=== PATIENT | male | born 1955 ===

== ENCOUNTER 2025-08-16 12:32 | Day surgery (SDC) | payer MEDICARE ==
[~2025-08-16] VITALS: Ht 193 cm; Wt 76.1 kg
[2025-08-16] MEDS ORDERED: CeFAZolin Sodium 2,000 MG VIAL ONE (12:53)
[2025-08-16] MEDS ORDERED: REMERON30 M9 (13:00)
[2025-08-16] MEDS ORDERED: LOSARTAN POTASS25 M2 (13:00)
[2025-08-16] MEDS ORDERED: DUTASTERIDE0.5 M3 (13:00)
[2025-08-16] MEDS ORDERED: TAMSULOSIN HCL0.4 M1 (13:00)
[2025-08-16] MEDS ORDERED: Cialis5 MG (13:01)
[2025-08-16] MEDS ORDERED: FentaNYL Citrate 50 MCG/ML 2 ML Injection ONE (14:08)
[2025-08-16] MEDS ORDERED: Dexamethasone Sod Phos 10 MG/ML 1ML VIAL ONE (14:21)
[2025-08-16] MEDS ORDERED: Bupivacaine HCl 0.25% 50 ML Vial (NON CHARGE) XX ONE ×2 (14:29)
[2025-08-16] MEDS ORDERED: Ondansetron HCl 2 MG / ML 2ML Vial ONE (14:31)
[2025-08-16] MEDS ORDERED: ePHEDrine Sulfate 50 MG/ML 1ML Injection ONE (14:52)
[2025-08-16] MEDS ORDERED: HYDROcodone 5-APAP 325 TAB ONE (16:34)
--- NOTE | 2025-08-16 16:43 | NUR ---
08/16/25 1643 Bushra Bee AFTER DC INSTRUCTIONS GIVEN PATIENT STATED THAT HIS PAIN WAS STARTING TO INCREASE. PATIENT RATES IT AT 3/10. RN TO MEDICATE PER ORDER. VSS. WILL CONTINUE TO MONITOR.
== END 2025-08-16 17:05 | disposition home or self-care (01) ==
LOC: ORSCSDS 12:32
PROVIDERS: Urology
PROC: 0VB60ZZ Excision of Right Tunica Vaginalis, Open Approach (ICD-10-PCS; principal; 2025-08-16 14:00)
DX: N43.0 Encysted hydrocele (principal); N40.0 Benign prostatic hyperplasia without lower urinary tract symptoms; I10 Essential (primary) hypertension; E78.5 Hyperlipidemia, unspecified; F32.A Depression, unspecified; Z79.899 Other long term (current) drug therapy
CPT/HCPCS: 82947; 88302; A9270; J0690; J1100; J2003; J2405; J2704; J3010; J7120

== ENCOUNTER → 2025-09-15 | Outpatient (CLI) | payer MEDICARE ==
[~2025-09-15] MED LIST: Cialis5 MG; DUTASTERIDE0.5 M3; LOSARTAN POTASS25 M2; REMERON30 M9; TAMSULOSIN HCL0.4 M1
== END ==
LOC: LAB SHORT 18:02 → LAB 18:02
DX: N30.00 Acute cystitis without hematuria (principal)
CPT/HCPCS: 87077; 87086; 87186